=== PATIENT | female | born 2000 | race Caucasian/White ===

== ENCOUNTER 2022-09-06 10:17 | Emergency (ER) | payer OTHER, SELFPAY ==
[2022-09-06] VITALS (7 sets, daily range): BP systolic 96–105; BP diastolic 51–64; PULSE 66–99; RESP 16–18; TEMP 37.7; O2SAT 93–100
[2022-09-06] MEDS: 0.9 % SODIUM CHLORIDE 1000 ml 1,000 ML IV ×2 (12:10→13:20)
--- NOTE | 2022-09-06 12:21 | ED_ITS ---
HPI - General Adult General Date Seen: 09/06/22 Chief complaint: Unspecified Complaint, Adult Stated complaint: Needs Fluids Time Seen by Provider: 09/06/22 11:24 Source: patient and family Mode of arrival: ambulatory Limitations: no limitations History of Present Illness HPI narrative: This very nice 22-year-old female presents here with nausea vomiting inability to keep fluids down, this is been going on for the last 2-3 days. They called their assembler garment form he recommended that she get seen. she has a history of diabetes insipidus and is on DDAVP nasal spray but unfortunately ran out of this, and only had the pills which do not work as well. Got a prescription coming for that, and hopefully pick that up today but presents now with just generalized weakness. She had 1 episode of diarrhea also yesterday, no history of fevers chills she denies any abdominal pain or a significant cough for sore throat associated with this. She denies being , and says this is becaus e she does not have any sexual contact. She presents here with her mother. Related Data Home Medications Medication Instructions Recorded Confirmed cyanocobalamin (vitamin B-12) 1,000 mcg PO DAILY 09/06/22 09/06/22 1,000 mcg tablet desmopressin 0.1 mg tablet 0.1 mg PO Q12H 09/06/22 09/06/22 desmopressin 10 mcg/spray (0.1 mL) spray intranasal 09/06/22 nasal spray (non-refrigerated) fluticasone propionate 50 intranasal 09/06/22 mcg/actuation nasal spray,suspension ondansetron 4 mg disintegrating mg 09/06/22 tablet Allergies Allergy/AdvReac Type Severity Reaction Status Date / Time No Known Drug Allergies Allergy Verified 09/06/22 10:34 Review of Systems Status of ROS: Reports: 10 or more systems reviewed and unremarkable except as noted in History and below PFSH PFSH Social History Smoking Status: Never smoker Do you use any of these nicotine containing products: None Second hand tobacco smoke exposure: No How often do you have a drink containing alcohol: never AUDIT-C Alcohol total score: 0 Non-prescribed substance use: denies use service: No Exam Narrative: Exam Narrative: Patient is speaking normally, no problem with slurring words, oriented x3. Head eyes ears nose and throat exam show equal pupils, no scleral icterus, extraocular muscles are normal, no facial droop, speech is normal, trachea normal and midline. Thyroid normal midline palpable not enlarged. Chest shows symmetrical rise bilaterally, normal auscultation with no wheezes, no increased work of breathing, no overt bruising or lesions seen, no tenderness is noted on auscultation. Heart sounds normal with no S3-S4 no murmurs clicks or gallops. Abdomen shows no obvious masses or hepatosplenomegaly, no organomegaly, bowel sounds are normal in all quadrants. No tenderness is noted also in all quadrants. Upper and lower extremities show normal power, normal range of motion, pulses are normal, sensations normal, fine motor movements are normal, pelvis is stable to rocking. Cervical spine shows normal range of motion, and palpably not tender. Thoracic spine shows normal range of motion, and palpably not tender, lumbar spine shows no tenderness to palpation percussion and is otherwise normal range of motion. Skin shows no rashes, petechiae or eccymosis. Her skin is little bit doughy and I suspect she has a little bit dehydrated, i discussed with mom and the patient that I think IV fluids little bit of Zofran would be appropriate checking her labs. Const: Vital Signs, click to edit/add: Vital Signs - 24 hr 09/06/22 10:29 09/06/22 12:25 Temperature 99.8 F H Pulse Rate [Pulse Oximeter] 99 70 Respiratory Rate 18 16 Blood Pressure [Le ft Upper Arm] 98/55 L Blood Pressure [Ri ght Upper Arm] 96/64 Pulse Oximetry 99 99 Oxygen Delivery Me thod Room Air Room Air Documenting provider has reviewed patient's vital signs: yes Course Course Hospital Course: I had a long talk with the patient and her mother, her laboratory work was reas suring, I believe at this point we can discharge her home, she will be get the nasal vasopressin, they have Zofran at home they can use, return if further signs and symptoms, her questions have been answered. Vital Signs Vital signs: Initial Vital Signs Temperature 99.8 F H 09/06/22 10:29 Temperature Source Oral 09/06/22 10:29 Pulse Rate 99 09/06/22 10:29 Pulse Rhythm 09/06/22 10:29 Pulse Strength 3+ Normal 09/06/22 10:29 Respiratory Rate 18 09/06/22 10:29 Blood Pressure 96/64 09/06/22 10:29 Blood Pressure Mean 74 09/06/22 10:29 Blood Pressure Position Sitting 09/06/22 10:29 Pulse Oximetry 99 09/06/22 10:29 Oxygen Delivery Method 09/06/22 10:29 Vital Signs Temperature 99.8 F H 09/06/22 10:29 Pulse Rate 99 09/06/22 10:29 Respiratory Rate 18 09/06/22 10:29 Blood Pressure 96/64 09/06/22 10:29 Pulse Oximetry 99 09/06/22 10:29 Oxygen Delivery Method 09/06/22 10:29 Temperature 99.8 F H 09/06/22 10:29 Pulse Rate 70 09/06/22 12:25 Respiratory Rate 16 09/06/22 12:25 Blood Pressure 98/55 L 09/06/22 12:25 Pulse Oximetry 99 09/06/22 12:25 Oxygen Delivery Method 09/06/22 12:25 Medical Decision Making MDM Narrative Medical decision making narrative: Differential diagnosis includes but is not limited to viral gastroenteritis, drug food poisoning, pyloric stenosis, gastritis, pancreatitis, hepatitis, cholecystitis, appendicitis, bowel obstruction, hyperemesis, cyclic vomiting syndrome, bulimia nervosa, migraine headache, motion sickness and medication side effect. These include the life threatening complications of appendicitis, drug food poisoning and bowel obstruction. Medical Records Medical records reviewed: Yes I reviewed the patient's medical records Lab Data Lab results reviewed: Yes I reviewed the patient's lab results Labs: Lab Results 09/06/22 09/06/22 09/06/22 Range/Units 11:47 12:00 12:15 WBC 8.22 (4.50-11.00) K/uL RBC 4.97 (4.00-5.20) m/uL Hgb 14.3 (12.0-16.0) gm/dL Hct 43.7 (33.0-51.0) % MCV 88 (80-100) fL MCH 29 (26-34) pg MCHC 33 (32-36) gm/dL RDW Coeff of Nadir 12.4 (11.5-15.5) % Plt Count 260 (140-440) K/uL Neut % (Auto) 85.9 H (42.0-72.0) % Lymph % (Auto) 7.2 L (20-44) % [place] % (Auto) 6.0 (0.0-11.0) % Eos % (Auto) 0.6 (0.0-7.0) % Baso % (Auto) 0.2 (0.0-3.0) % Neut # (Auto) 7.10 H (1.7-7.0) K/uL Lymph # (Auto) 0.60 L (0.90-2.90) K/uL [place] # (Auto) 0.50 (0.00-0.90) K/UL Eos # (Auto) 0.05 (0.00-0.50) K/uL Baso # (Auto) 0.02 (0.00-0.30) K/uL Sodium (135-149) mmol/L Potassium (3.6-5.1) mmol/L Chloride (96-114) mmol/L Carbon Dioxide (20-32) mmol/L BUN (5-24) mg/dL Creatinine (0.5-1.5) mg/dL Estimated GFR ml/min Glucose (60-115) mg/dL Calcium (8.4-10.6) mg/dL Urine Color Dark yellow (Yellow) Urine Appearance Clear (Clear) Urine pH 5.0 (5.0-8.5) Ur Specific [place] 1.025 (1.000-1.030) Urine Protein Negative (Negative) Urine Glucose (UA) Negative (Negative) Urine Ketones Negative (Negative) Urine Blood 2+ A (Negative) Urine Nitrite Negative (Negative) Urine Bilirubin Negative (Negative) Urine Urobilinogen 0.2 (0.2-1.0) Ur Leukocyte Esterase Negative (Negative) Urine RBC 0-2 (0-2) Urine WBC 0-2 (0-5) Ur Squamous Epith Cells Few (None-Few) Amorphous Sediment Few A (None) Other Sediment FEW YEAST (None) Urine Bacteria Moderate A (None) SARS-CoV-2 (PCR) Negative SARS-CoV-2 (Negative) Influenza Type A (PCR) Negative PCR FLU A (Negative) Influenza Type B (PCR) Negative PCR FLU B (Negative) RSV (PCR) Negative PCR RSV (Negative) 09/06/22 Range/Units 12:15 WBC (4.50-11.00) K/uL RBC (4.00-5.20) m/uL Hgb (12.0-16.0) gm/dL Hct (33.0-51.0) % MCV (80-100) fL MCH (26-34) pg MCHC (32-36) gm/dL RDW Coeff of Nadir (11.5-15.5) % Plt Count (140-440) K/uL Neut % (Auto) (42.0-72.0) % Lymph % (Auto) (20-44) % [place] % (Auto) (0.0-11.0) % Eos % (Auto) (0.0-7.0) % Baso % (Auto) (0.0-3.0) % Neut # (Auto) (1.7-7.0) K/uL Lymph # (Auto) (0.90-2.90) K/uL [place] # (Auto) (0.00-0.90) K/UL Eos # (Auto) (0.00-0.50) K/uL Baso # (Auto) (0.00-0.30) K/uL Sodium 140 (135-149) mmol/L Potassium 3.7 (3.6-5.1) mmol/L Chloride 104 (96-114) mmol/L Carbon Dioxide 27 (20-32) mmol/L BUN 12 (5-24) mg/dL Creatinine 0.7 (0.5-1.5) mg/dL Estimated GFR 126 ml/min Glucose 92 (60-115) mg/dL Calcium 9.1 (8.4-10.6) mg/dL Urine Color (Yellow) Urine Appearance (Clear) Urine pH (5.0-8.5) Ur Specific [place] (1.000-1.030) Urine Protein (Negative) Urine Glucose (UA) (Negative) Urine Ketones (Negative) Urine Blood (Negative) Urine Nitrite (Negative) Urine Bilirubin (Negative) Urine Urobilinogen (0.2-1.0) Ur Leukocyte Esterase (Negative) Urine RBC (0-2) Urine WBC (0-5) Ur Squamous Epith Cells (None-Few) Amorphous Sediment (None) Other Sediment (None) Urine Bacteria (None) SARS-CoV-2 (PCR) (Negative) Influenza Type A (PCR) (Negative) Influenza Type B (PCR) (Negative) RSV (PCR) (Negative) Discharge Plan Discharge Clinical Impression: Diabetes insipidus, Dehydration Patient Disposition: Home w/ Parent or Adult Condition: Improved Instructions: Dehydration (ED), Diabetes Insipidus (ED) Additional Instructions: Home, rest, use use your vasopressin nasal spray, follow-up as needed with endocrinology, return to the ER if weakness or other issues. I would be happy to give you a prescription for Zofran also but it sounds like you have this. Prescriptions: No Action desmopressin 10 mcg/spray (0.1 mL) spray with pump INTRANASAL cyanocobalamin (vitamin B-12) 1,000 mcg tablet 1,000 mcg PO DAILY Label Comments: TAKE 1 TABLET (1,000 MCG) BY MOUTH ONCE DAILY. ondansetron 4 mg tablet,disintegrating Label Comments: PLACE 1 TABLET (4 MG) ON THE TONGUE EVERY 8 HOURS IF NEEDED FOR NAUSEA/VOMITING. (INS MAX 18TAB/21D) fluticasone propionate 50 mcg/actuation spray,suspension INTRANASAL Label Comments: PLACE 2 SPRAYS IN AFFECTED NOSTRIL(S) ONCE DAILY. desmopressin 0.1 mg tablet 0.1 mg PO Q12H Follow Up/Referrals: Krupa Delcid DO [Primary Care Provider] - Stand Alone Forms: [facility] Info Instructions
[2022-09-06 12:26] LABS: Basophils Absolute Auto 0.02 K/uL (0.00-0.30); Basophils Percent Auto 0.2 % (0.0-3.0); Eosinophils Absolute Auto 0.05 K/uL (0.00-0.50); Eosinophils Percent Auto 0.6 % (0.0-7.0); Hematocrit 43.7 % (33.0-51.0); Hemoglobin* 14.3 gm/dL (12.0-16.0); Immature Granulocytes Abs Auto 0.01 K/uL (0.00-0.30); Immature Granulocytes Pct Auto 0.1 %; Lymphocytes Percent Auto 7.2 % (20-44); Mean Corpuscular HGB Conc 33 gm/dL (32-36); Mean Corpuscular Hemoglobin 29 pg (26-34); Mean Corpuscular Volume 88 fL (80-100); Neutrophils Percent Auto 85.9 % (42.0-72.0); Platelet Count* 260 K/uL (140-440); RDW Coefficient of Variation % 12.4 % (11.5-15.5); Red Blood Count 4.97 m/uL (4.00-5.20); White Blood Count* 8.22 K/uL (4.50-11.00)
[2022-09-06] MEDS: ONDANSETRON 2 MG/ML inj 4 MG IVP (12:30)
[2022-09-06 12:34] LABS: Slide Review Reflex No
[2022-09-06 12:40] LABS: Appearance Urine Clear (Clear); Bilirubin Urine Negative (Negative); Blood Urine 2+ (Negative); Color Urine Dark yellow (Yellow); Glucose Urine Negative (Negative); Ketones Urine Negative (Negative); Leukocyte Esterase Urine Negative (Negative); Nitrite Urine Negative (Negative); Protein Urine Negative (Negative); Specific Gravity Urine 1.025 (1.000-1.030); Urobilinogen Urine 0.2 (0.2-1.0)
--- NOTE | 2022-09-06 12:40 | ED.NURSE ---
This principal technical writer called to room by pt stating that she had a sudden stabbing chest pain. Pain only lasted approximately 3 seconds then completely resolved per pt report. Vital signs stable. Dr. Villanueva notified. Per Dr. Villanueva, continue to monitor at this time.
[2022-09-06 12:50] LABS: Chloride* 104 mmol/L (96-114); Potassium* 3.7 mmol/L (3.6-5.1); Sodium* 140 mmol/L (135-149)
[2022-09-06 12:53] LABS: Blood Urea Nitrogen* 12 mg/dL (5-24); Carbon Dioxide* 27 mmol/L (20-32); Creatinine* 0.7 mg/dL (0.5-1.5); Estimated Glomerular Filt Rate 126 ml/min
[2022-09-06 12:54] LABS: Calcium* 9.1 mg/dL (8.4-10.6); Glucose* 92 mg/dL (60-115)
[2022-09-06 13:01] LABS: PCR FLU A Negative PCR FLU A (Negative); PCR FLU B Negative PCR FLU B (Negative); PCR RSV Negative PCR RSV (Negative)
[2022-09-06 13:08] LABS: SARS PCR* Negative SARS-CoV-2 (Negative)
[2022-09-06 13:12] LABS: RBC Urine 0-2 (0-2); Squamous Epithelial Cell Urine Few (None-Few); WBC Urine 0-2 (0-5)
[2022-09-06 13:13] LABS: Amorphous Sediment Urine Few; Bacteria Urine Moderate; Other Sediment Urine FEW YEAST
== END 2022-09-06 14:54 | disposition home or self-care (01) ==
PROVIDERS: Emergency Provider Family Medicine; PCP Family Medicine
DX: E23.2 Diabetes insipidus (principal); E86.0 Dehydration
CPT/HCPCS: 36415; 80048; 81001; 85025; 87086; 87502; 87634; 87635; 96374; 99283; 99284; J2405; J7030

== ENCOUNTER 2025-03-21 12:38 | Emergency (ER) | payer OTHER, SELFPAY ==
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
--- OUTSIDE RECORDS SUMMARY | 2025-03-21 12:41 | XMS_ITS | Patient Health Record ---
Author Organization [facility] Address [address] 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 Name Role Phone Remi MARTINEZ, [facility] Primary Care Provider [phone] Hattie MARTINEZ, [facility] [phone] Allergies Allergen (clinical drug ingredient) Drug/Non Drug Allergy documented on EMR Reaction Allergy Type Onset Date Status possible dust (uncoded) Unknown Allergy Active possible mold (uncoded) Unknown Allergy Active Reason For Referral No Information Medications Medication SIG (Take, Route, Frequency, Duration) Notes Start Date End Date Status Multivitamin Childrens - as directed Orally Active Mdc-Vq-Hswtdo 0.18/0.215/0.25 MG-25 MCG 1 tablet Orally Once a day Active Nasal Saline Not-Ramiro ing Desmopressin Acetate Pattison 0.01 % 0.1 ml at bedtime Nasally Once a day Active Albuterol Sulfate HFA 108 (90 Base) MCG/ACT 2 puffs Inhalation every 4 hrs as needed; Duration: 30 Active Fluticasone Propionate 50 MCG/ACT 2 spray in each nostril Nasally Once a day Not-Taking Flovent HFA 44 MCG/ACT 2 puffs Inhalatio n Twice a day Active Albuterol Sulfate (2.5 MG/3ML) 0.083% 1 vial Inhalation every 4 hours Active Albuterol Sulfate 108 (90 Base) MCG/ACT 2 puffs as needed Inhalation every 4 hrs Active Desmopressin Acetate 0.1 MG 1 tablet Orally Twice a day Active Ferrous Sulfate 324 (65 Fe) MG 1 tablet Orally Once a day Not-Taking Immunizations Vaccine Route Administration Date Status Comme nts Influenza 6mo - 18 years IM Intramuscular 06/13/2019 Admin istered Problems Problem Type SNOMED Code ICD Code Onset Dates Problem Status W/U Status Risk Notes Problem Diabetes insipidus (8234415459) 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 Problem Asthma without status asthmaticus (82715698) Reactive airway disease without complication, unspecified asthma severity, unspecified whether persistent (J45.909) Active confirmed Plan Of Treatment No Information Insurance Providers Payer Name Payer Address Payer Phone Subscriber Number Group Number Insured Name Patient Relationship to Insured Coverage Start Date Coverage End Date [facility] [address] [place] [address] [id number] Aramis Ventura Child Medical (General) History Medical History History ICD Code pulmonary nodule noted on CT chest reactive airway disease diabetes insipidus vocal cord dysfunction Surgical History Surgery Date(Month/Year) reduction of ankle fracture hymenectomy 2016
--- OUTSIDE RECORDS SUMMARY | 2025-03-21 12:41 | XMS_ITS | Clinical Summary ---
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 Name Role Phone Karli Khalil MD Primary Care Provider [phone] Allergies No known active allergies Medications ibuprofen (ADVIL/MOTRIN) 200 MG tablet Take 200 mg by mouth every 4 hours as needed Active desmopressin 0.01 % SOLNIndications :Central Diabetes Insipidus Curtiss 1 spray (10 mcg) in nostril 2 times daily 3 sprays in am; 2 sprays at night 5 Active norgestim-eth estrad triphasic (ORTHO TRI-CYCLEN LO) 0.18/0.215/0.25 MG-25 MCG tablet Take 1 tablet by mouth daily Active fluticasone (FLONASE) 50 MCG/ACT sprayIndication s:Acute sinusitis with symptoms > 10 days Curtiss 2 sprays into both nostrils daily 1 Bottle 7 Active amoxicillin (AMOXIL) 875 MG tabletIndicatio ns:Acute sinusitis with symptoms > 10 days Take 1 tablet (875 mg) by mouth 2 times daily 20 tablet 8 Active Additional Information Patient not taking.Reported on 10/10/2018 amoxicillin-cla vulanate (AUGMENTIN) 875-125 MG tabletIndicatio ns:Acute sinusitis with symptoms > 10 days Take 1 tablet by mouth 2 times daily 20 tablet 9 Active Additional Information Patient not taking.Reported on 01/15/2019 dextromethorpha n-guaiFENesin (MUCINEX DM) 30-600 MG 12 hr tablet Take 1 tablet by mouth every 12 hours Active diphenhydrAMINE -acetaminophen (TYLENOL PM) 25-500 MG tablet Take 1 tablet by mouth nightly as needed for sleep Active Active Problems Problem Noted Date Diagnosed Date Diabetes insipidus 01/04/2015 Overview (07/21/2015): Abnormality of Pituitary Gland diagnosed at age 4 yrs- Dr. [facility]; DDAVP Immunizations Immunization Administration Dates Next Due DTAP (<7y) 11/05/2005, 4,12/13/2002,2001,2001,2001 HEPA 05/27/2015,03/30/2013 HIB (PRP-T) 12/13/2002,2001,2001 HPV 05/27/2015,03/30/2013 HepB 12/13/2002,2001,2001 Influenza (H1N1) 12/11/2013 Influenza (IIV3) PF 06/19/2010, 9,05/15/2008,2006,06/01/2005 Influenza Vaccine >6 months,quad, PF 05/27/2015 MMR (MMRII) 11/05/2005,02/12/2004,05/28/2002 Meningococcal (Menomune ) 03/30/2013 Pneumococcal (PCV 7) 12/13/2002,05/28/2002,08/01 Poliovirus, inactivated (IPV) 11/05/2005 ,02/12/2004,12/13/2002,2001,2001,2001 TDAP (Adacel,Boostrix) 03/30/2013 Varicella (Varivax) 11/21/2006,05/28/2002 Family History Medical History Relation Comments Family History Negative Father Family History Negative Mother Relation Status Comments Father Alive Mother Alive Social History Tobacco Use Types Packs/Day Years Used Date Smoking Tobacco: Never Smokeless Tobacco: Never Tobacco Cessation:Counseling Given: Not Answered Alcohol Use Standard Drinks/Week Comments No 0 (1 standard drink = 0.6 oz pur e alcohol) Adolescent Education Answer Date Record ed Getting School Help Needed Not on file 10/17 /2023 Comments No Sex and Gender Information Value Date Recorded Sex Assigned at Not on file 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 Gender Identity Not on file Sexual Orientation Not on file Last Filed Vital Signs Vital Sign Reading Time Taken Comments Blood Pressure 96/63 10/13/2022 1:28 PM CDT Pulse 56 10/13/2022 1:28 PM CDT Temperature 37 C (98.6 F) 10/13/2022 1:28 PM CDT Respiratory Rate 16 08/05/2019 10:37 AM DRESS CAP MAKER Oxygen Saturation 98% 10/13/2022 1:28 PM CDT Inhaled Oxygen Concentration - - Weight 62.7 kg (138 lb 3.7 oz) 03/01/2019 3:32 P M CDT Height 162.6 cm (5' 4) 12/27/2017 2:50 PM CDT Body Mass Index 23.73 12/27/2017 2:50 PM CDT Plan of Treatment Health Maintenance Due Date Last Done Comments ANNUAL REVIEW OF HM ORDERS 2001 HIV SCREENING 2016 HEPATITIS C SCREENING 2019 YEARLY PREVENTIVE VISIT 09/22/2021 09/22/2020, 05/27 PAP 2022 DTAP/TDAP/TD VACCINE (7 - Td or Tdap) 03/30/2023 03/30/2013, 11/05/2005, 02/12/2004, Additional history exists COVID-19 VACCINE ( season) 2024 10/27/2020, 10/04/2020 PHQ-2 (once per calendar year) 2024 ADVANCE CARE PLANNING 08/06/2024 08/06/2019 INFLUENZA VACCINE (#1) 2025 , 04/17/2020, 06/13/2019, Additional history exists ZOSTER VACCINE (1 of 2) 2051 HEPATITIS B VACCINE Completed 12/13/2002, 12/13/2002, 2001, Additional history exists PNEUMOCOCCAL VACCINE: PEDIATRICS (0 to 5 YEARS) AND AT-RISK PATIENTS (6 to 49 YEARS) Aged Out 12/13/2002, 05/28/2002, 2001 No longer eligible based on patient's age to complete this topic HPV VACCINE Completed 05/27/2015, 11/0 09/2014, 03/30/2013, Additional history exists MENINGITIS VACCINE Completed 05/11/2018, 0 03/30/2013, 03/30/2013 MENINGITIS B VACCINE Aged Out No long er eligible based on patient's age to complete this topic Insurance [employer] [facility] [employer] PENDING OTHER INSURANCE Care Teams Lube Man Relationship Specialty Start Date End Date Karli Khalil MD PCP - General Pediatrics 01/28/19
[2025-03-21 12:44] VITALS: BP 103/58; PULSE 56; RESP 16; TEMP 36.7; O2SAT 97; BMI 26.0
--- NOTE | 2025-03-21 12:58 | ED.FEMALEGU ---
HPI - Female Genitourinary General Time Seen by Provider: 12:58 Date Seen: 03/21/25 Chief complaint: Vaginal Bleeding Stated complaint: Heavy bleeding- Menstrual Time Seen by Provider: 03/21/25 12:42 Source: patient, family (Mom is with her.) and RN notes reviewed Mode of arrival: ambulatory Limitations: no limitations History of Present Illness HPI Narrative: This 25-year-old female is coming in accompanied by her mom with concern of heavy bleeding. She started her menstrual cycle on Tuesday. She is recently . She has had a history of a ruptured ovarian cyst but admits that had severe pain with that. Today she had passage of heavy clots, has had some significant cramping. They do worry about . She has not had pain like she had with the ruptured ovarian cyst but has noted more heavy cramping. She does tend to be anemic per her mom. They are not attempting , or using contraception but she is not on any hormone/oral contraceptive. She does feel weak and lightheaded with this. Her menstrual cycles are usually regular. She has had to change 1 super pad hourly x1. She does feel when she got up to go to work early this morning that she had heavy flow when 1st getting up. She does have diabetes insipidus. She notes no bruising, no bleeding of gums with brushing teeth, no nosebleeds. Related Data Home Medications ?Medication ?Instructions ?Recorded ?Confirmed cyanocobalamin (vitamin B-12) 1,000 mcg PO DAILY 09/06/22 09/06/22 1,000 mcg tablet desmopressin 0.1 mg tablet 0.1 mg PO Q12H 09/06/22 03/21/25 desmopressin 10 mcg/spray (0.1 mL) 1 spray intranasal 09/06/22 nasal spray (non-refrigerated) cetirizine 10 mg tablet (Allergy 10 mg PO DAILY PRN 03/21/25 03/21/25 Relief (cetirizine)) Allergies Allergy/AdvReac Type Severity Reaction Status Date / Time No Known Drug Allergies Allergy Verified 03/21/25 12:51 Review of Systems Status of ROS: Reports: 6 or more systems reviewed and unremarkable except as noted in History and below PFSH PFSH Social History Smoking Status: Never smoker Do you use any of these nicotine containing products: None Second hand tobacco smoke exposure: No How often do you have a drink containing alcohol: never AUDIT-C Alcohol total score: 0 Non-prescribed substance use: denies use service: No Exam Const: Vital Signs, click to edit/add: Vital Signs - 24 hr 03/21/25 12:44 03/21/25 15:40 Temperature 98.1 F Pulse Rate 55 L Pulse Rate [Pulse Oximeter] 56 L Respiratory Rate 16 16 Blood Pressure 104/66 Blood Pressure [Ri ght Upper Arm] 103/58 L Pulse Oximetry 97 97 Oxygen Delivery Me thod Room Air Room Air This 25-year-old female is alert, interactive, no apparent distress. She is very pleasant and talkative. Sclera clear, speaking easily in complete sentences. Lungs are clear, good air entry, wheezing crackles, no tachypnea, no accessory muscle use. Neck is supple, no adenopathy, no thyromegaly masses or nodules. CV regular rate and rhythm, no murmur, normal S1-S2. Abdomen is soft, nontender, nondistended, no organomegaly, no rebound or guarding. Pelvic exam deferred at this point. Documenting provider has reviewed patient's vital signs: yes Course Course ED Course: Will be doing a test, upon discussion of her symptoms, they would like to do imaging with ultrasound regardless. Thus I will order this. Reviewed if the test is negative, likely dysfunctional uterine bleeding. Did review that would also be checking for thyroid test. This is something that we might allow them to discharge if everything else is back as these can take a while to come back. She may need to follow up clinic if abnormal. Will make sure she is not significantly anemic but her current presentation does not appear to me that she is having active bleeding that would require emergent intervention. Reevaluation(s) Time of Reevaluation #1: 14:52 Reevaluation #1: Patient is provided copy of her normal ultrasound. They are happy to hear this. They do know that I do not have any lab results back yet. Still need to confirm negative test although ultrasound is reassuring. She did change her liner in ultrasound. Prior to that she changed her panty liner and tampon around noon before coming in. Time of Reevaluation #2: 15:31 Reevaluation #2: Reviewed with patient and her mom that there is no , she is not anemic, hemoglobin is normal at 12.5. Thyroid is pending in we have certainly will contact her if there is any abnormality. We will not call if his normal and she can presume normality in this scenario. We discussed treatment options that are possible. Since she is not anemic, she would like to just see if bleeding settles down, I think this is reasonable. I am not seeing anything clinically that would suggest we need to intervene immediately or emergently. She would prefer to stay hormone type medications/ control. Thus, trial of observation outpatient will be employed. Vital Signs Vital signs: Initial Vital Signs Temperature 98.1 F 03/21/25 12:44 Temperature Source Temporal Artery Scan 03/21/25 12:44 Pulse Rate 56 L 03/21/25 12:44 Respiratory Rate 16 03/21/25 12:44 Blood Pressure 103/58 L 03/21/25 12:44 Blood Pressure Mean 73 03/21/25 12:44 Blood Pressure Position Sitting 03/21/25 12:44 Pulse Oximetry 97 03/21/25 12:44 Oxygen Delivery Method Room Air 03/21/25 12:44 Vital Signs Temperature 98.1 F 03/21/25 12:44 Pulse Rate 56 L 03/21/25 12:44 Respiratory Rate 16 03/21/25 12:44 Blood Pressure 103/58 L 03/21/25 12:44 Pulse Oximetry 97 03/21/25 12:44 Oxygen Delivery Method Room Air 03/21/25 12:44 Temperature 98.1 F 03/21/25 12:44 Pulse Rate 55 L 03/21/25 15:40 Respiratory Rate 16 03/21/25 15:40 Blood Pressure 104/66 03/21/25 15:40 Pulse Oximetry 97 03/21/25 15:40 Oxygen Delivery Method Room Air 03/21/25 15:40 MDM - Female Genitourinary Lab Data Attestation: I reviewed the patient's lab results. Labs: Lab Results 03/21/25 Range/Units 14:10 WBC 8.80 (4.50-11.00) K/uL RBC 4.28 (4.00-5.20) m/uL Hgb 12.5 (12.0-16.0) gm/dL Hct 37.1 (33.0-51.0) % MCV 87 (80-100) fL MCH 29 (26-34) pg MCHC 34 (32-36) gm/dL RDW Coeff of Nadir 11.8 (11.5-15.5) % Plt Count 261 (140-440) K/uL Neut % (Auto) 57.7 (42.0-72.0) % Lymph % (Auto) 33.2 (20-44) % Hodgeman % (Auto) 6.6 (0.0-11.0) % Eos % (Auto) 1.7 (0.0-7.0) % Baso % (Auto) 0.7 (0.0-3.0) % Neut # (Auto) 5.08 (1.7-7.0) K/uL Lymph # (Auto) 2.92 H (0.90-2.90) K/uL Hodgeman # (Auto) 0.60 (0.00-0.90) K/UL Eos # (Auto) 0.15 (0.00-0.50) K/uL Baso # (Auto) 0.06 (0.00-0.30) K/uL Abs Immat Gran (auto) 0.01 (0.00-0.30) K/uL Imm/Tot Granulo (auto) 0.1 % Sodium 136 (135-149) mmol/L Potassium 3.8 (3.6-5.1) mmol/L Chloride 103 (96-114) mmol/L Carbon Dioxide 27 (20-32) mmol/L Anion Gap 6 L (7-15) mEq/L BUN 13 (5-24) mg/dL Creatinine 0.8 (0.5-1.5) mg/dL Estimated Creat Clear 93.64 Estimated GFR 105 ml/min Glucose 106 (60-115) mg/dL Calcium 9.4 (8.4-10.6) mg/dL HCG, Qual Negative (Negative) Imaging Data US pelvis: Attestation: I have reviewed the pertinent imaging results. Radiologist's impression: Patient: LANCE CAAL Facility:?[facility] RIS Patient ID:?[id number] Site Patient ID:?[id number]. Site :?[id number] Study:?US-Pelvis TA/TV-03/21/2025 1:54:45 PM Ordering Physician:?Rosario Greco Final Report: INDICATION: Menorrhagia COMPARISON: 08/10/2018 TECHNIQUE: Transabdominal: Issa-scale and color Doppler ultrasound of the uterus and ovaries from a transabdominal approach. Transvaginal: Issa-scale and color Doppler ultrasound of the uterus and ovaries from a transvaginal approach. Transvaginal ultrasound of the pelvis was performed to better visualize the genitourinary organs, such as the ovaries and/or endometrium. FINDINGS: Reported last menstrual period: 02/18/2025. The uterus is anteverted and measures 7.6 x 3.5 x 4.5 cm. No uterine masses. The endometrial stripe measures 0.6 cm in double thickness. No endometrial masses. The cervix is normal. The right ovary measures 2.9 x 3.2 x 2.4 cm. Physiologic appearance without a dominant cystic lesion or solid ovarian / adnexal mass. Normal color Doppler flow. The left ovary measures 3.1 x 1.7 x 1.9 cm. Physiologic appearance without a dominant cystic lesion or solid ovarian / adnexal mass. Normal color Doppler flow. No free fluid. IMPRESSION: Normal pelvic ultrasound. Dictated by Bruna Eubanks MD @ 03/21/2025 2:01:54 PM (Electronic Signature) Discharge Plan Discharge Clinical Impression: Menorrhagia Patient Disposition: Home, Self-Care Condition: Stable Instructions: Abnormal (Dysfunctional) Uterine Bleeding (ED), Menorrhagia (ED) Additional Instructions: Continue to monitor bleeding. If your bleeding is increasing, your becoming symptomatic from blood loss, need to be re-evaluated. If you have ongoing menstrual issues, can talk to your primary care provider or call [facility] at [phone]. Activity Level: No Restrictions Prescriptions: No Action cetirizine [Allergy Relief (cetirizine)] 10 mg tablet 10 mg PO DAILY PRN desmopressin 10 mcg/spray (0.1 mL) spray with pump 1 spray INTRANASAL cyanocobalamin (vitamin B-12) 1,000 mcg tablet 1,000 mcg PO DAILY Patient Comments: TAKE 1 TABLET (1,000 MCG) BY MOUTH ONCE DAILY. desmopressin 0.1 mg tablet 0.1 mg PO Q12H Follow Up/Referrals: Krupa Delcid DO [Primary Care Provider, Family Practice] Stand Alone Forms: MyHealth Info Instructions
--- NOTE | 2025-03-21 13:12 | CRLHL7_ITS ---
For Patients: As a result of the Century Cures Act, medical imaging exams and procedure reports are released immediately into your electronic medical record. You may view this report before your referring provider. If you have questions, please contact your health care provider. INDICATION: Menorrhagia COMPARISON: 08/10/2018 TECHNIQUE: Transabdominal: Issa-scale and color Doppler ultrasound of the uterus and ovaries from a transabdominal approach. Transvaginal: Issa-scale and color Doppler ultrasound of the uterus and ovaries from a transvaginal approach. Transvaginal ultrasound of the pelvis was performed to better visualize the genitourinary organs, such as the ovaries and/or endometrium. FINDINGS: Reported last menstrual period: 02/18/2025. The uterus is anteverted and measures 7.6 x 3.5 x 4.5 cm. No uterine masses. The endometrial stripe measures 0.6 cm in double thickness. No endometrial masses. The cervix is normal. The right ovary measures 2.9 x 3.2 x 2.4 cm. Physiologic appearance without a dominant cystic lesion or solid ovarian / adnexal mass. Normal color Doppler flow. The left ovary measures 3.1 x 1.7 x 1.9 cm. Physiologic appearance without a dominant cystic lesion or solid ovarian / adnexal mass. Normal color Doppler flow. No free fluid. IMPRESSION: Normal pelvic ultrasound. Dictated by Bruna Eubanks MD @ 03/21/2025 2:01:54 PM (Electronically Signed)
[2025-03-21 14:18] LABS: Hematocrit 37.1 % (33.0-51.0); Hemoglobin* 12.5 gm/dL (12.0-16.0); Immature Granulocytes Pct Auto 0.1 %; Lymphocytes Absolute Auto 2.92 K/uL (0.90-2.90); Mean Corpuscular HGB Conc 34 gm/dL (32-36); Mean Corpuscular Hemoglobin 29 pg (26-34); Mean Corpuscular Volume 87 fL (80-100); RDW Coefficient of Variation % 11.8 % (11.5-15.5); Red Blood Count 4.28 m/uL (4.00-5.20); White Blood Count* 8.80 K/uL (4.50-11.00)
[2025-03-21 14:19] LABS: Immature Granulocytes Abs Auto 0.01 K/uL (0.00-0.30)
[2025-03-21 14:35] LABS: Chloride* 103 mmol/L (96-114); Potassium* 3.8 mmol/L (3.6-5.1); Sodium* 136 mmol/L (135-149)
[2025-03-21 14:38] LABS: Anion Gap 6 mEq/L (7-15); Blood Urea Nitrogen* 13 mg/dL (5-24); Calcium* 9.4 mg/dL (8.4-10.6); Carbon Dioxide* 27 mmol/L (20-32); Creatinine* 0.8 mg/dL (0.5-1.5); Est. Creatinine Clearance* 93.64; Estimated Glomerular Filt Rate 105 ml/min; Glucose* 106 mg/dL (60-115)
[2025-03-21 14:54] LABS: Slide Review Reflex No
[2025-03-21 15:26] LABS: HCG Qualitative Serum* Negative (Negative)
[2025-03-21 15:40] VITALS: BP 104/66; PULSE 55; RESP 16; O2SAT 97
[2025-03-21 15:49] LABS: TSH With Reflex to FT4* 0.798 uIU/mL (0.270-4.200)
== END 2025-03-21 15:44 | disposition home or self-care (01) ==
PROVIDERS: Emergency Provider Family Medicine; PCP Family Medicine
DX: N92.0 Excessive and frequent menstruation with regular cycle (principal)
CPT/HCPCS: 36415; 76830; 76856; 80048; 84443; 84703; 85025; 99283; 99284